=== PATIENT | female | born 1980 | race Hispanic/Latino ===

== ENCOUNTER → 2019-09-20 | Outpatient (CLI) | payer BC ==
--- NOTE | 2019-09-20 09:09 | Diagnostic Imaging Report ---
EXAM: US ABDOMEN COMPLETE DATE: 09/20/2019 8:02 AM INDICATION: Elevated liver enzymes COMPARISON: None TECHNIQUE: Transverse and longitudinal taylor scale and color doppler sonographic images of the upper abdomen were obtained. FINDINGS: LIVER 19 cm in the right midclavicular line. Increased echogenicity of the liver with normal contour, no masses. SPLEEN 9.0 cm in maximum diameter. Normal echogenicity, no masses. GALLBLADDER No gallbladder wall thickening, distension, stone, or pericholecystic fluid. Negative reported sonographic Alvares's sign. The gallbladder wall measures 1mm BILE DUCTS No intra nor extra-hepatic biliary dilation. Common bile duct measures 3mm PANCREAS: Visualized portions are normal. RIGHT KIDNEY: 10.7 cm Echogenicity: Normal Collecting System: No hydronephrosis Stones: None Cyst/Mass: None LEFT KIDNEY: 11.1 cm Echogenicity: Normal Collecting System: No hydronephrosis Stones: None Cyst/Mass: None VESSELS: Aorta: Visualized portions are within normal size limits Inferior Vena Cava: Visualized portions are normal Main Portal Vein: 1.2 cm, normal size with hepatopetal flow. FREE FLUID: None IMPRESSION: Hepatomegaly and hepatic steatosis. No cholelithiasis or sonographic evidence of cholecystitis. Signed by: Madison Evans MD on 09/20/2019 9:07 AM
== END ==
LOC: US 07:46
PROVIDERS: ATTEND Internal Medicine Gastroenterology
DX: R74.8 Abnormal levels of other serum enzymes (principal)
CPT/HCPCS: 76700